=== PATIENT | female | born 1955 | race African-American/Black ===

== ENCOUNTER 2016-10-25 00:02 | Emergency (ER) | payer MEDICARE, OTHER ==
--- NOTE | ~2016-10-25 | CR211 ---
[facility] A Service of [facility] RADIOLOGY TEXT RESULTS PATIENT: MERT JAUREGUI LOCATION: [facility] : 51 UNIT #: [id number] AGE: [address]: Bebo Traylor MD SEX: F ORDER DR: [id number] [facility] [address] [place], [place] [address] [id number] MR#: [id number] #: [id number] NAME: MERT JAUREGUI : 1955 SEX: F STUDY DATE/TIME: 10/25/2016 0:40 UNIT: JIA ROOM: STUDY DESCRIPTION: CR Ribs Uni 2 View W PA Ch Rt Attending Physician: Bebo Traylor M.D. Ordering Physician: Bebo Traylor M.D. Primary Care Physician: Satish Mandujano M.D. MEDICAL IMAGING REPORT This report is preliminary unless electronic signature is present EXAM Chest and right rib series, 10/25/2016. HISTORY 61-year-old female in the ED complaining of right rib pain after injury. She fell into the corner of a table yesterday, striking chest wall. TECHNIQUE AP upright chest x-ray with limited two-view right rib series. FINDINGS No acute right rib fracture is visible. The lungs are expanded and clear with no visible pneumothorax, pulmonary infiltrate or pleural effusion. Cardiomediastinal silhouette is normal. Chronic fracture deformity proximal left humerus. Wall calcification is noted within the gallbladder in the right upper abdomen (porcelain gallbladder). IMPRESSION 1. No visible acute right rib fracture. 2. No active disease in the chest. No visible pneumothorax or pleural effusion. 3. Old fracture deformity proximal left humerus. 4. Gallbladder wall calcification visible in the right upper abdomen (porcelain gallbladder). Dictated by... Cameron Gan M.D. THIS IS AN ELECTRONICALLY VERIFIED REPORT [facility] A Service of [facility] RADIOLOGY TEXT RESULTS PATIENT: MERT JAUREGUI LOCATION: [facility] : 51 UNIT #: [id number] AGE: [address]: Bebo Traylor MD SEX: F ORDER DR: Cameron Gan M.D. at 10/25/2016 3:53 PM RGW/abe TD: 10/25/2016 12:11 JOB #: [id number] MEDICAL IMAGING REPORT Page 1 of 1 COPY
== END 2016-10-25 02:07 | disposition home or self-care (01) ==
LOC: CED 00:02
DX: S20.219A Contusion of unspecified front wall of thorax, initial encounter (principal); Z88.5 Allergy status to narcotic agent; W22.8XXA Striking against or struck by other objects, initial encounter; Y92.009 Unspecified place in unspecified non-institutional (private) residence as the place of occurrence of the external cause
CPT/HCPCS: 71101; 94640; 99284